=== PATIENT | female | born 1940 | race Caucasian/White ===

== ENCOUNTER → 2016-11-24 | Day surgery (SDC) | payer MEDICARE, OTHER ==
[~2016-11-24] VITALS: Ht 154.9 cm; Wt 69.5 kg
[~2016-11-24] MED LIST: ACETAMINOPHEN 1000 MG/100 ML VIAL IV ONE; AMLO10TA2 PO; ASPI-110 PO; ASPI1TAB69 PO; ASPIRIN EC 81 MG TABEC PO SCH; ATOR40TA16 PO; ATROPINE SULFATE 1 MG/ML VIAL IV PUSH PRN; BUPIVACAINE/EPINEPHRINE 0.5% PF 30 ML VIAL ONE; CHLORHEXIDINE GLUCONATE 2 % 1 PACK (2 CLOTHS) TOPICAL PRN; CHOL400D2 PO; CLOP75TA PO; CLOPIDOGREL 300 MG TAB PO SCH; DEXTROSE 50% IN WATER 50 ML VIAL(D50) IV PUSH PRN; DO NOT ADM ANY ANTICOAGULANT DRUGS PRN; ENAL20TA PO; ENALAPRILAT 1.25 MG/ML VIAL IV PUSH PRN; ENALAPRILAT 1.25 MG/ML VIAL ONE; FAMOTIDINE 20 MG/2 ML VIAL ONE; FOLI400T PO; GLUCAGON 1 MG/ML VIAL OTHER PRN; HEPARIN SODIUM - IV 10,000 UNITS/10 ML VIAL ONE; HEPARIN SODIUM - SQ 10,000 UNITS/ML VIAL ONE; INSULIN HUMAN REGULAR 1,000 UNITS/10 ML VIAL ONE; INSULIN HUMAN REGULAR 1,000 UNITS/10 ML VIAL SQ PRN; IOHEXOL 350 MG/ML 100 ML BTL (for Cath Lab) IV ONE; LABETALOL HCL 100 MG/20 ML VIAL IV PRN; LABETALOL HCL 100 MG/20 ML VIAL ONE; LACTATED RINGER'S 1000 ML IV PRN; LIDOCAINE HCL 1% 50 ML VIAL INFIL PRN; LORazepam 2 MG/ML VIAL IV PUSH PRN; MEDIUM DOSE INSULIN NOVOLIN REGULAR SUPPLEMENTAL SCALE SQ SCH; METOCLOPRAMIDE HCL 10 MG/2 ML VIAL IV PRN; METOPROLOL TARTRATE 25 MG TAB PO PRN; MIDAZOLAM HCL 2 MG/2 ML VIAL ONE; MISCELLANEOUS NURSING INFORMATION SCH; MORPHINE SULFATE 4 MG/ML INJ IV PRN; NITROGLYCERIN 50 MG/10 ML VIAL IC ONE; NITROPRUSSIDE 50 MG/D5W 250 ML IV PRN; NORMOSOL R INJ 1,000 ML IV ONE; NOVO7030P2 SQ; ONDANSETRON HCL 4 MG/2 ML VIAL IV PUSH PRN; PLEASE DISCONTINUE PREVIOUS SUPPLEMENTAL SCALE INSULIN ORDERS ONE; POTASSIUM CHLORIDE 20 MEQ CONTROLLED RELEASE TAB PO PRN; POVIDONE IODINE 5% (ANTISEPSIS KIT) 4 APPLICATIONS EACH NARE PRN; PROPOFOL 200 MG/20 ML AMP IV ONE; SODIUM CHLOR 0.9% 1000 ML INJ 1,000 ML IV SCH; SODIUM CHLOR 0.9% 250 ML IV PRN; SODIUM CHLORID 0.9% 500 ML IV PRN; SODIUM CHLORIDE FLUSH BID IV FLUSH SCH; SODIUM CHLORIDE FLUSH PRN IV FLUSH; VITA500T49 PO; WARF-23 PO; cloNIDine HCL 0.1 MG TAB PO PRN; ePHEDrine/NS 25 MG/5 ML SYR IV ONE; fentaNYL CITRATE 250 MCG/5 ML AMP ONE; oxyCODONE/ACETAMINOPHEN 5 MG/325 MG TAB PO PRN
[2016-11-24 07:00] LABS: AUTOMATED NEUTROPHIL # 4.5 TH/MM3 (1.8-7.7); BASOPHIL # 0.1 TH/MM3 (0-0.2); EOSINOPHIL # 0.2 TH/MM3 (0-0.4); EOSINOPHIL % 2.5 % (0.0-4.0); HEMATOCRIT 41.4 % (35.0-46.0); HEMO FLAGS DIFF FINAL; LYMPH % 26.9 % (9.0-44.0); MEAN CELL VOLUME 86.8 FL (80.0-100.0); MEAN CORPUSCULAR HEMOGLOBIN 29.3 PG (27.0-34.0); MEAN CORPUSCULAR HGB CONC 33.8 % (32.0-36.0); MONO % 10.6 % (0.0-8.0); PLATELET COUNT 160 TH/MM3 (150-450); RED BLOOD COUNT 4.78 MIL/MM3 (4.00-5.30); RED CELL DISTRIBUTION WIDTH 13.5 % (11.6-17.2); WHITE BLOOD COUNT 7.6 TH/MM3 (4.0-11.0)
[2016-11-24 07:12] LABS: APTT (PATIENT) 22.7 SEC (24.3-30.1); PROTHROMBIN TIME - PATIENT 10.6 SEC (9.8-11.6)
[2016-11-24 07:14] LABS: BICARBONATE 29.7 MEQ/L (21.0-32.0); POTASSIUM 4.1 MEQ/L (3.5-5.1)
[2016-11-24] MEDS: VANCOMYCIN 1,000 MG/NS 250ML (for <70 kg) IV SCH ×4 (07:25→07:44)
--- NOTE | 2016-11-24 08:31 | EKG ---
Date Performed: 11/24/2016 Time Performed: 07:19:56 PTAGE: 76 years EKG: Sinus rhythm T-WAVE ABNORMALITY, CONSIDER LATERAL ISCHEMIA ABNORMAL ECG NO PREVIOUS TRACING DOCTOR: Trent Hudson Interpretating Date/Time 11/24/2016 08:30:32
[2016-11-24 18:37] VITALS: BP 157/67; PULSE 82; RESP 20; TEMP 97.9; O2SAT 95
--- NOTE | 2016-11-25 14:18 | MP ---
cc: LI NEWTON JAMES DATE OF SURGERY: 11/24/2016 PREOPERATIVE DIAGNOSIS Disabling, potentially limb-threatening left lower extremity ischemia. POSTOPERATIVE DIAGNOSIS Disabling, potentially limb-threatening left lower extremity ischemia. OPERATIVE PROCEDURE 1. Aortofemoral arteriogram. 2. Left superficial femoral, popliteal and tibial orbital atherectomy with percutaneous balloon angioplasty. SURGEON Yusuf Guevara COMPUTER PATTERNMAKER SUZANNE Taylor ANESTHESIA Local MAC. HISTORY This 76-year-old hypertensive diabetic female ex-smoker presented with progressively disabling bilateral lower extremity ischemia with recent onset rest pain within the left foot suggesting a developing critical ischemia. She had undergone previous right SFA stenting and two separate directional atherectomy procedures of the left SFA by Roverto Jenkins MD. Our initial plan was conventional femoral-popliteal revascularization, below-knee in situ approach. Unfortunately, venous mapping disclosed greater saphenous vein of inadequate luminal dimensions for below-knee in situ bypass and thus repeat attempt at endovascular revascularization was chosen. DESCRIPTION OF PROCEDURE With the patient in the supine position IV sedation was induced, the lower abdomen, both groins and thighs prepped with Betadine and draped in a sterile fashion. One gram of Ancef was administered intravenously and following a protocol timeout, the skin and subcutaneous tissue at the proposed right common femoral access site preemptively infiltrated with 0.5% Marcaine with epinephrine. Utilizing ultrasound guidance an 18-gauge needle was inserted into the right mid common femoral lumen and a J-wire advanced under fluoroscopic guidance into the iliac artery. A 5-Lebanese hemostatic sheath was deployed over the J-wire. An Advantage guidewire Omni catheter combination was negotiated into the subrenal aorta and aortoiliac angiogram completed confirming wide patency of the distal aorta, both common internal and external iliac arteries. The Advantage guidewire was negotiated into the left iliac and common femoral arteries. The 5-Lebanese hemostatic sheath was exchanged for a 6-Lebanese 45 cm sheath which was advanced over the aortic bifurcation into the left iliac system and parked within the left mid common femoral artery. Selective left lower extremity angiogram revealed a diffusely small SFA and popliteal artery. The SFA and popliteal exhibited multiple high-grade stenoses throughout, particularly prominent with near complete occlusion of the popliteal at the knee joint level. Occlusive disease extended into the tibioperoneal trunk but below, three-vessel uninterrupted flow to the foot was demonstrated. The patient was systemically heparinized with a total of 7000 units. Utilizing an Advantage guidewire Quick-Cross catheter combination, the diffuse, multiple SFA and popliteal stenoses were crossed. The Advantage guidewire was exchanged for a Viper wire which was parked within the mid anterior tibial. Orbital atherectomy of the tibioperoneal, popliteal and SFA disease was then completed with a 1.5 solid CSI crown spun at 60, 90 and 140,000 RPMs. This was followed by angioplasty of the atherectomized areas with a 3 - 3.5 mm tapered balloon inflated to 8 atmospheres requiring three separate segmental inflations, each x2/2 minutes. Completion angiogram revealed marked improvement with no significant residual stenotic disease and rapid flow with uninterrupted three-vessel runoff into the left foot. No technical defects were apparent. The 6-Lebanese sheath was exchanged for a short 6-Lebanese sheath which was secured with a skin suture of 4-0 nylon. Sterile dressing applied. At the completion of the procedure robust triphasic Doppler flow was confirmed within the left pedal arteries. The patient returned to the recovery room in stable condition having tolerated the procedure well. MD JENNIFER Hunt/LEAH /6:19 PM /2:08 PM
== END | disposition home or self-care (01) ==
LOC: HSDC 05:57 → HSDI 05:57 → UNDOADMIN 05:57 → HSDI 05:57 → EDSTATUS 08:00
PROVIDERS: ATTEND Surgery Vascular Surgery
DX: M62.262 Nontraumatic ischemic infarction of muscle, left lower leg (principal); I10 Essential (primary) hypertension; E11.9 Type 2 diabetes mellitus without complications; Z87.891 Personal history of nicotine dependence; Z79.01 Long term (current) use of anticoagulants; Z79.84 Long term (current) use of oral hypoglycemic drugs
CPT/HCPCS: 01440; 37225; 75710; 76937; 80048; 82948; 85025; 85347; 85610; 85730; 86850; 86900; 86901; 93005; C1725; C1769; J0131; J1644; J1815; J2250; J3010; J3370; J7030; J7050; Q9967

== ENCOUNTER 2016-12-30 12:52 | Inpatient (IN) | payer OTHER, MEDICARE ==
[~2016-12-30] VITALS: Ht 154.9 cm; Wt 78.5 kg
[~2016-12-30 12:52] MED LIST changes: -ACETAMINOPHEN 1000 MG/100 ML VIAL IV ONE; -ASPI-110 PO; -ASPI1TAB69 PO; -ASPIRIN EC 81 MG TABEC PO SCH; -ATROPINE SULFATE 1 MG/ML VIAL IV PUSH PRN; -BUPIVACAINE/EPINEPHRINE 0.5% PF 30 ML VIAL ONE; -CHLORHEXIDINE GLUCONATE 2 % 1 PACK (2 CLOTHS) TOPICAL PRN; -CHOL400D2 PO; -CLOP75TA PO; -CLOPIDOGREL 300 MG TAB PO SCH; -DEXTROSE 50% IN WATER 50 ML VIAL(D50) IV PUSH PRN; -DO NOT ADM ANY ANTICOAGULANT DRUGS PRN; -ENALAPRILAT 1.25 MG/ML VIAL IV PUSH PRN; -ENALAPRILAT 1.25 MG/ML VIAL ONE; -FAMOTIDINE 20 MG/2 ML VIAL ONE; -FOLI400T PO; -GLUCAGON 1 MG/ML VIAL OTHER PRN; -HEPARIN SODIUM - IV 10,000 UNITS/10 ML VIAL ONE; -HEPARIN SODIUM - SQ 10,000 UNITS/ML VIAL ONE; -INSULIN HUMAN REGULAR 1,000 UNITS/10 ML VIAL ONE; -INSULIN HUMAN REGULAR 1,000 UNITS/10 ML VIAL SQ PRN; -IOHEXOL 350 MG/ML 100 ML BTL (for Cath Lab) IV ONE; -LABETALOL HCL 100 MG/20 ML VIAL IV PRN; -LABETALOL HCL 100 MG/20 ML VIAL ONE; -LACTATED RINGER'S 1000 ML IV PRN; -LIDOCAINE HCL 1% 50 ML VIAL INFIL PRN; -LORazepam 2 MG/ML VIAL IV PUSH PRN; -MEDIUM DOSE INSULIN NOVOLIN REGULAR SUPPLEMENTAL SCALE SQ SCH; -METOCLOPRAMIDE HCL 10 MG/2 ML VIAL IV PRN; -METOPROLOL TARTRATE 25 MG TAB PO PRN; -MIDAZOLAM HCL 2 MG/2 ML VIAL ONE; -MISCELLANEOUS NURSING INFORMATION SCH; -MORPHINE SULFATE 4 MG/ML INJ IV PRN; -NITROGLYCERIN 50 MG/10 ML VIAL IC ONE; -NITROPRUSSIDE 50 MG/D5W 250 ML IV PRN; -NORMOSOL R INJ 1,000 ML IV ONE; -NOVO7030P2 SQ; -ONDANSETRON HCL 4 MG/2 ML VIAL IV PUSH PRN; -PLEASE DISCONTINUE PREVIOUS SUPPLEMENTAL SCALE INSULIN ORDERS ONE; -POTASSIUM CHLORIDE 20 MEQ CONTROLLED RELEASE TAB PO PRN; -POVIDONE IODINE 5% (ANTISEPSIS KIT) 4 APPLICATIONS EACH NARE PRN; -PROPOFOL 200 MG/20 ML AMP IV ONE; -SODIUM CHLOR 0.9% 1000 ML INJ 1,000 ML IV SCH; -SODIUM CHLOR 0.9% 250 ML IV PRN; -SODIUM CHLORID 0.9% 500 ML IV PRN; -SODIUM CHLORIDE FLUSH BID IV FLUSH SCH; -SODIUM CHLORIDE FLUSH PRN IV FLUSH; -VITA500T49 PO; -cloNIDine HCL 0.1 MG TAB PO PRN; -ePHEDrine/NS 25 MG/5 ML SYR IV ONE; -fentaNYL CITRATE 250 MCG/5 ML AMP ONE; -oxyCODONE/ACETAMINOPHEN 5 MG/325 MG TAB PO PRN
[2017-01-11] MEDS ORDERED: ASPI-110 PO (14:02)
[2017-01-11] MEDS ORDERED: CLOP75TA PO (14:05)
[2017-01-11] MEDS ORDERED: CHOL400D2 PO (14:07)
[2017-01-11] MEDS ORDERED: FOLI400T PO (14:07)
[2017-01-11] MEDS ORDERED: VITA500T49 PO (14:07)
[2017-01-11] MEDS ORDERED: NOVO7030P2 SQ ×2 (14:19)
[2017-01-12] VITALS (12 sets, daily range): BP systolic 112–149; BP diastolic 69–84; PULSE 65–96; RESP 18; TEMP 97–98.1; O2SAT 95–99
[2017-01-12] MEDS ORDERED: VANCOMYCIN HCL 1000 MG ON-CALL/NS 250 ML IV SCH ×2 (07:00)
[2017-01-12 07:21] LABS: AUTOMATED NEUTROPHIL # 4.4 TH/MM3 (1.8-7.7); BASOPHIL # 0.1 TH/MM3 (0-0.2); BASOPHIL % 1.2 % (0.0-2.0); EOSINOPHIL # 0.2 TH/MM3 (0-0.4); EOSINOPHIL % 2.1 % (0.0-4.0); HEMATOCRIT 40.1 % (35.0-46.0); HEMO FLAGS DIFF FINAL; MEAN CELL VOLUME 86.8 FL (80.0-100.0); MEAN CORPUSCULAR HEMOGLOBIN 30.1 PG (27.0-34.0); MEAN CORPUSCULAR HGB CONC 34.6 % (32.0-36.0); MONO % 10.1 % (0.0-8.0); NEUT % 59.6 % (16.0-70.0); PLATELET COUNT 178 TH/MM3 (150-450); RED BLOOD COUNT 4.62 MIL/MM3 (4.00-5.30); RED CELL DISTRIBUTION WIDTH 13.3 % (11.6-17.2); WHITE BLOOD COUNT 7.5 TH/MM3 (4.0-11.0)
[2017-01-12 07:38] LABS: BICARBONATE 24.6 MEQ/L (21.0-32.0); POTASSIUM 3.8 MEQ/L (3.5-5.1)
[2017-01-12] MEDS ORDERED: PROTAMINE SULFATE 50 MG/5 ML VIAL ONE (07:44)
[2017-01-12] MEDS ORDERED: BUPIVACAINE/EPINEPHRINE 0.5% PF 30 ML VIAL ONE ×2 (07:44→11:46)
[2017-01-12] MEDS ORDERED: HEPARIN SODIUM - IV 10,000 UNITS/10 ML VIAL ONE (07:44)
[2017-01-12] MEDS ORDERED: HEPARIN SODIUM - SQ 10,000 UNITS/ML VIAL ONE (07:44)
[2017-01-12] MEDS ORDERED: POVIDONE IODINE 5% (ANTISEPSIS KIT) 4 APPLICATIONS EACH NARE PRN (07:45)
[2017-01-12] MEDS ORDERED: INSULIN HUMAN REGULAR 1,000 UNITS/10 ML VIAL SQ PRN (07:45)
[2017-01-12] MEDS ORDERED: METOPROLOL TARTRATE 25 MG TAB PO PRN (07:45)
[2017-01-12] MEDS ORDERED: SODIUM CHLORID 0.9% 500 ML IV PRN (07:45)
[2017-01-12] MEDS ORDERED: CHLORHEXIDINE GLUCONATE 2 % 1 PACK (2 CLOTHS) TOPICAL PRN (07:45)
[2017-01-12] MEDS ORDERED: LACTATED RINGER'S 1000 ML IV PRN (07:45)
[2017-01-12] MEDS ORDERED: DEXAMETHASONE SOD PHOS 4 MG/ML VIAL ONE (07:54)
[2017-01-12] MEDS ORDERED: MIDAZOLAM HCL 2 MG/2 ML VIAL ONE (07:54)
[2017-01-12] MEDS ORDERED: FAMOTIDINE 20 MG/2 ML VIAL ONE (07:54)
[2017-01-12 09:01] LABS: APTT (PATIENT) 23.2 SEC (24.3-30.1); PROTHROMBIN TIME - PATIENT 10.7 SEC (9.8-11.6)
[2017-01-12] MEDS ORDERED: IOHEXOL 350 MG/ML 50 ML BTL (for RAD DIAG) ONE (10:23)
[2017-01-12] MEDS ORDERED: ePHEDrine/NS 25 MG/5 ML SYR IV ONE (12:00)
[2017-01-12] MEDS ORDERED: ONDANSETRON HCL 4 MG/2 ML VIAL IV PUSH ONE (12:00)
[2017-01-12] MEDS ORDERED: NORMOSOL R INJ 2,000 ML IV ONE (12:00)
[2017-01-12] MEDS ORDERED: PROPOFOL 200 MG/20 ML AMP IV ONE (12:00)
[2017-01-12] MEDS ORDERED: fentaNYL CITRATE 250 MCG/5 ML AMP ONE (13:00)
[2017-01-12] MEDS ORDERED: DEXTROSE 50% IN WATER 50 ML VIAL(D50) IV PUSH PRN (13:15)
[2017-01-12] MEDS ORDERED: DO NOT ADM ANY ANTICOAGULANT DRUGS PRN (13:15)
[2017-01-12] MEDS ORDERED: GLUCAGON 1 MG/ML VIAL OTHER PRN (13:15)
[2017-01-12] MEDS ORDERED: SODIUM CHLORIDE FLUSH PRN IV FLUSH (13:30)
[2017-01-12] MEDS ORDERED: *morphine SULFATE 8 MG/ML PERIprocedure ONLY ONE (14:17)
[2017-01-12] MEDS ORDERED: POTASSIUM CHLOR 20 MEQ 100 ML x 2 BAGS IV PRN (14:30)
[2017-01-12] MEDS ORDERED: POTASSIUM CHLOR 20 MEQ/100 ML x 1 BAG IV PRN (14:30)
[2017-01-12] MEDS ORDERED: MORPHINE SULFATE 4 MG/ML INJ IV PRN (14:30)
[2017-01-12] MEDS ORDERED: POTASSIUM PHOSPHATE 21 MMOL/NS 250 ML IV PRN ×2 (14:30)
[2017-01-12] MEDS ORDERED: MAGNESIUM SULFATE 1 GM/100 ML IV PRN (14:30)
[2017-01-12] MEDS: ONDANSETRON HCL 4 MG/2 ML VIAL IV PUSH PRN (18:22)
[2017-01-12] MEDS: ENOXAPARIN SODIUM 30 MG/0.3 ML SYRINGE SQ SCH (18:22)
[2017-01-12] MEDS: MEDIUM DOSE INSULIN NOVOLOG SUPPLEMENTAL SCALE SQ SCH ×2 (18:35→21:00)
[2017-01-12] MEDS: SODIUM CHLORIDE FLUSH BID IV FLUSH SCH (21:00)
[2017-01-13] VITALS (18 sets, daily range): BP systolic 111–164; BP diastolic 51–90; PULSE 66–105; RESP 17–19; TEMP 97.5–98.3; O2SAT 93–96
[2017-01-13] MEDS: ONDANSETRON HCL 4 MG/2 ML VIAL IV PUSH PRN ×2 (01:58→09:03)
[2017-01-13] MEDS: ENOXAPARIN SODIUM 30 MG/0.3 ML SYRINGE SQ SCH (06:16)
[2017-01-13] MEDS: MEDIUM DOSE INSULIN NOVOLOG SUPPLEMENTAL SCALE SQ SCH ×2 (06:27→12:39)
--- NOTE | 2017-01-13 07:40 | MP ---
cc: LUANN GUEVARA M.D. DATE OF SURGERY 01/12/2017 PREOPERATIVE DIAGNOSIS Disabling right lower extremity ischemia POSTOPERATIVE DIAGNOSIS Disabling right lower extremity ischemia OPERATIVE PROCEDURE Right femoral-popliteal bypass, in situ, below-knee with intraoperative arteriogram. SURGEON Luann Guevara MD [employer]ID[employer]ER SUZANNE Taylor ANESTHESIA General endotracheal DESCRIPTION OF THE OPERATIVE PROCEDURE With the patient in the supine position and under general endotracheal anesthesia, the abdomen, both groins and entire right lower extremity were prepped with Betadine and draped in a sterile fashion. One gram of vancomycin was administered intravenously and following a protocol time-out, the skin and subcutaneous tissue within the proposed incisional areas preemptively infiltrated with 0.5% Marcaine with epinephrine. A vertical incision was performed along the proximal medial calf through which the distal greater saphenous vein was circumferentially mobilized. The incision was deepened into the distal popliteal space and the popliteal artery circumferentially mobilized to its bifurcation, encircled with vessel loops. The popliteal artery was cannulated with a 21-gauge butterfly needle. Diluted contrast was injected in conjunction with digital C-arm fluoroscopic imaging. This confirmed a widely patent popliteal artery and unrestricted flow into the anterior and posterior tibial arteries. The anterior tibial appeared dominant. A hockey-stick shaped incision was performed within the groin area through which the greater saphenous vein, common superficial and profunda femoral arteries were circumferentially mobilized. The common femoral artery exhibited extensive calcific atherosclerosis along its posterior wall. The calcific disease extended well into the distal external iliac and produced a diffuse, 50-60% stenosis throughout. The SFA occluded at its origin. The patient was systemically heparinized with 5000 units. The graft saphenofemoral junction was divided between a small Satinsky clamp placed proximally and Yasargil clips distally. The proximal cuff of the saphenous vein was closed with continuous 5-0 Prolene. The saphenous vein was spatulated on end and the first venous valve was excised. The common femoral and profunda femoral arteries were occluded with double looped Vesseloops. A vertical arteriotomy was performed along the anterior surface of the distal common femoral. The saphenous vein was anastomosed end-to-side to the arteriotomy with continuous 6-0 Prolene. The occluding Yasargil clip and double looped Vesseloops were released reestablishing pulsatile flow within the profunda as well as into the proximal saphenous vein lumen. The greater saphenous vein was ligated distally with 4-0 silk, transected proximal to the ligature. A disposable LeMaitre valvulotome was then utilized to lyse the saphenous valves, three separate passages/atraumatic. Brisk antegrade pulsatile flow resulted from the distal vein graft lumen. The vein graft was retrogradely flushed with heparinized saline and occluded with a Yasargil clip. The popliteal artery was occluded proximally and distally with double looped Vesseloops. A vertical 2-cm arteriotomy was performed along its anteromedial surface. The vein was trimmed to an appropriate length, spatulated on end and anastomosed end-to-side to the popliteal arteriotomy with continuous 6-0 Prolene. The occluding double looped Vesseloops and Yasargil clip were released establishing pulsatile flow through the vein graft into the popliteal artery as documented by brisk augmentation of Doppler flow distal to the popliteal anastomosis. Two separate 2 cm counter incisions were performed along the course of the in situ vein graft, proximal and distal thigh areas through which previously identified (by duplex scan) greater saphenous collaterals were isolated and ligated with 4-0 silk. Heparin was reversed with 20 mg of protamine. The popliteal and common femoral exposure incisions were closed with three separate deep layers of continuous 4-0 Monocryl. All four skin incisions were secured with continuous subcuticular 5-0 Monocryl, reinforced with Steri-Strips and covered with sterile gauze. There were no operative complications. At the conclusion of the procedure, the right posterior tibial pulse was easily palpable with robust Doppler flow. The patient returned to recovery in stable condition having tolerated the procedure well. MD JENNIFER Hunt/JASON /5:21 PM /7:28 AM
[2017-01-13] MEDS ORDERED: INSULIN HUMAN NPH/R 70/30 1,000 UNITS/10 ML VIAL SQ SCH ×2 (08:00→16:00)
[2017-01-13] MEDS: SODIUM CHLORIDE FLUSH BID IV FLUSH SCH (08:55)
[2017-01-13] MEDS ORDERED: ASPIRIN 81 MG CHEW TAB PO SCH (09:00)
[2017-01-13] MEDS ORDERED: CLOPIDOGREL 75 MG TAB PO SCH (09:00)
[2017-01-13] MEDS ORDERED: ENALAPRIL MALEATE 10 MG TAB PO SCH (09:00)
[2017-01-13] MEDS ORDERED: ATORVASTATIN 40 MG TAB PO SCH (09:00)
== END 2017-01-13 14:46 | disposition home or self-care (01) | DRG 254 ==
LOC: HSDI 01-12 06:28 → HCIN 01-12 16:27
PROVIDERS: ADMIT Surgery Vascular Surgery; ATTEND Surgery Vascular Surgery
PROC: 041K0ZL Bypass Right Femoral Artery to Popliteal Artery, Open Approach (ICD-10-PCS; principal; 2017-01-12 08:53)
DX: I70.291 Other atherosclerosis of native arteries of extremities, right leg (principal)
CPT/HCPCS: 76000; 80048; 82948; 85025; 85610; 85730; 86850; 86900; 86901; J1100; J1644; J1650; J1815; J2250; J2270; J2405; J2720; J3010; J3370; J3480; J7050; Q9967